=== PATIENT | female | born 1970 | race Caucasian/White ===

== ENCOUNTER 2018-05-09 04:12 | Emergency (ER) | payer MEDICAID ==
[~2018-05-09] VITALS: Ht 162.6 cm; Wt 84.8 kg
[2018-05-09 04:22] VITALS: BP 170/97
[2018-05-09] MEDS ORDERED: ORE25 PO (04:28)
[2018-05-09] MEDS ORDERED: AMLO-27 PO (04:28)
[2018-05-09] MEDS ORDERED: METO100T14 PO (04:28)
[2018-05-09] MEDS ORDERED: LISI30TA6 PO (04:28)
[2018-05-09] MEDS ORDERED: FLUO60TA PO (04:28)
[2018-05-09] MEDS ORDERED: LORazepam 1 MG TAB PO ONE (05:20)
[2018-05-09] MEDS ORDERED: ASPIRIN 325 MG TAB PO ONE (05:20)
[2018-05-09 06:26] LABS: BASOPHILS # (AUTO) 0.1 K/uL (0.00-0.22); BASOPHILS % (AUTO) 1.1 % (0.0-2.0); EOSINOPHILS # (AUTO) 0.1 K/uL (0-0.4); HEMATOCRIT 42.2 % (36-48); HEMOGLOBIN 14.3 g/dL (12.0-16.0); LYMPHOCYTES # (AUTO) 1.4 K/uL (2.5-16.5); MEAN CORPUSCULAR HEMOGLOBIN 30 pg (27-31); MEAN CORPUSCULAR HGB CONC 34 g/dL (33-37); MEAN CORPUSCULAR VOLUME 87.6 fL (80-94); MONOCYTES # (AUTO) 0.4 K/uL (0.8-1.0); MONOCYTES % (AUTO) 5.2 % (1.7-9.3); NEUTROPHILS % (AUTO) 74.7 % (42.2-75.2); PLATELET COUNT (AUTO) 318 K/uL (140-450); RED BLOOD CELL COUNT(AUTO) 4.82 MIL/uL (4.20-5.40); RED CELL DISTRIBUTION WIDTH 13.1 % (11.6-13.7)
[2018-05-09 06:43] LABS: ALBUMIN 3.5 g/dL (3.4-5.0); ANION GAP 9.2 (8-16); CARBON DIOXIDE 32.1 mmol/L (21-32); CREATININE 0.7 mg/dL (0.6-1.3); POTASSIUM 3.3 mmol/L (3.5-5.1); TOTAL BILIRUBIN 0.3 mg/dL (0.0-1.0)
[2018-05-09 06:50] LABS: CREATINE KINASE MB 1.1 ng/mL (0-3.6)
[2018-05-09 08:00] VITALS: BP 135/89
== END 2018-05-09 08:00 | disposition home or self-care (01) ==
LOC: MED 04:12
DX: R07.89 Other chest pain (principal); F41.9 Anxiety disorder, unspecified; I10 Essential (primary) hypertension; Z88.8 Allergy status to other drugs, medicaments and biological substances
CPT/HCPCS: 36415; 71045; 80053; 82550; 82553; 83690; 84484; 85025; 85379; 93005; 99285; Q0092